=== PATIENT | female | born 1955 | race Caucasian/White ===

== ENCOUNTER → 2018-03-04 07:01 | Outpatient (CLI) | payer OTHER, SELFPAY ==
[2018-03-04 09:20] LABS: Cholesterol 200 mg/dL (140-199); Glucose 99 mg/dL (80-110); HDL Cholesterol 73 mg/dL (40-60); LDL Cholesterol Calculated 112 mg/dL (<100); Triglycerides 75 mg/dL (35-150)
== END ==
PROVIDERS: PCP Family Medicine; Visit Provider Family Medicine
DX: Z13.1 Encounter for screening for diabetes mellitus (principal); Z13.220 Encounter for screening for lipoid disorders
CPT/HCPCS: 36415; 80061; 82947

== ENCOUNTER → 2018-03-15 12:22 | Outpatient (CLI) | payer OTHER, SELFPAY | PROVIDERS: Family Provider Family Medicine; PCP Family Medicine; Visit Provider Family Medicine | DX: R09.81 Nasal congestion (principal) | CPT/HCPCS: 87070; 87147; 87205 ==

== ENCOUNTER → 2018-06-17 13:40 | Outpatient (CLI) | payer OTHER, SELFPAY ==
--- NOTE | 2018-06-17 13:42 | DI.MG.S_ITS ---
BILATERAL DIGITAL SCREENING MAMMOGRAM 3D/2D WITH CAD: 06/17/2018 CLINICAL: Routine screening. Family history of breast cancer. Comparison is made to exams dated: 01/22/2017 mammogram - [facility], 12/18/2015 mammogram, and 10/17/2014 mammogram - [facility]. The tissue of both breasts is heterogeneously dense. This may lower the sensitivity of mammography. Current study was also evaluated with a Computer Aided Detection (CAD) system. No significant masses, calcifications, or other findings are seen in either breast. There has been no significant interval change. IMPRESSION: NEGATIVE There is no mammographic evidence of malignancy. A 1 year screening mammogram is recommended. This exam was interpreted at Station ID: [id number]. NOTE: For mammograms, a report in lay terms will be sent to the patient. Approximately 15% of breast malignancies will not be visualized mammographically. In the management of a palpable breast mass, a negative mammogram must not discourage biopsy of a clinically suspicious lesion. Electronically Signed By: Len [email or web address]:06/17/2018 16:26:11 letter sent: Normal Exam ACR BI-RADS Category 1: Negative [id number]
== END ==
PROVIDERS: PCP Family Medicine; Visit Provider Family Medicine
DX: Z12.31 Encounter for screening mammogram for malignant neoplasm of breast (principal); Z80.3 Family history of malignant neoplasm of breast
CPT/HCPCS: 77063; 77067